=== PATIENT | female | born 1975 | race Two or more races ===

== ENCOUNTER 2016-12-02 19:45 | Emergency (ER) | payer OTHER ==
[2016-12-02 19:59] VITALS: BP 120/65; BMI 31.5
--- NOTE | 2016-12-02 21:22 | DR.GENAD ---
HPI - PCP Primary Care Physician: EMILY - Complaint/Symptoms Chief Complaint:: PT C/O LOWER LT BACK PAIN DECREASED ENERGY SINCE YESTERDAY ALSO C/O PINFUL URINATION - Source History Provided: Patient - Mode of Arrival Mode of Arrival: Ambulatory - Timing Onset of Chief Complaint: 12/01/16 PMH - PMH Past Medical History: Yes Past Medical History: Asthma Past Surgical History: Yes Surgical History: - Family History History of Family Medical Conditions: No - Social History Alcohol Use: None Do you use any recreational Drugs:: No Lives With: Family Lives Where: Home - infectious screening In the last 2 months have you had wt loss of >10#?: NO Have you had fever, night sweats or hemotysis?: No Have you traveled outside the country in the last 6 months?: No Isolation: Standard PE - Vital Signs Vitals: Temperature 98.6 F Pulse Rate 70 Respiratory Rate 18 Blood Pressure 120/65 O2 Sat by Pulse Oximetry 98 - Discharge Plan Condition: Stable - Follow ups/Referrals Follow ups/Referrals: EMILY,None [Primary Care Provider] - 3 days - Instructions
== END 2016-12-02 23:17 | disposition left against medical advice (07) ==
LOC: ER 20:25
DX: M54.5 Low back pain (principal)
CPT/HCPCS: 99281